=== PATIENT | female | born 2000 | race African-American/Black ===

== ENCOUNTER 2019-07-29 20:23 | Emergency (ER) | payer MEDICAID, OTHER ==
[~2019-07-29] VITALS: Ht 177.8 cm; Wt 155.4 kg
[~2019-07-29 20:23] MED LIST: CITA20TA11 PO
[2019-07-29 20:29] VITALS: Ht 177.8 cm; Wt 155.4 kg
[2019-08-01] MEDS: CITALOPRAM 20 MG TAB PO SCH (08:21)
[2019-08-02] MEDS: CITALOPRAM 20 MG TAB PO SCH (11:34)
[2019-08-03 07:00] VITALS: BP 122/75; PULSE 60; RESP 18
[2019-08-03] MEDS: CITALOPRAM 20 MG TAB PO SCH (09:03)
[2019-08-03] MEDS ORDERED: LORAZEPAM 1 MG TAB PO ONE (11:00)
== END 2019-08-03 13:20 | disposition home or self-care (01) ==
LOC: E/R 20:23
DX: R45.851 Suicidal ideations (principal); Z59.0 Homelessness
CPT/HCPCS: 36415; 80053; 80307; 81001; 81025; 85025; Z7502; Z7610; 81003; 99285